=== PATIENT | female | born 1960 | race Caucasian/White ===

== ENCOUNTER 2016-04-23 14:05 | Emergency (ER) | payer OTHER ==
[~2016-04-23] VITALS: Ht 172.7 cm; Wt 71.2 kg
[~2016-04-23 14:05] MED LIST: FAMOTIDINE20 MG PO; IBUPROFEN400 M1 PO; LEVSIN0.125 M1 PO; PERCOCET 5-3251 EACH PO; TYLENOL325 M1 PO; ZOFRAN4 M2 PO
[2016-04-23 14:16] VITALS: BP 111/72
--- NOTE | 2016-04-23 15:36 | ED GI/GU/ABDOMINAL COMPLAINT ---
History of Present Illness General Chief Complaint: Abdominal Pain/Flank Pain Stated Complaint: ABD PAIN X 2 WEEKS Source: patient, old records Exam Limitations: no limitations Vital Signs & Intake/Output Vital Signs & Intake/Output Vital Signs Date Time Temp Pulse Resp B/P Pulse O2 O2 Flow FiO2 Ox Delivery Rate 04/23 1416 97.8 87 20 111/72 97 Room Air ED Intake and Output 04/24 0000 04/23 1200 Intake Total Output Total Balance Patient 157 lb Weight Allergies Coded Allergies: Sulfa (Sulfonamide Antibiotics) (Intermediate, HIVES 04/23/16) codeine (FLIP OUT 07/07/15) fluconazole (HIVES 07/07/15) shellfish derived (HIVES 07/07/15) Reconcile Medications Dicyclomine Hydrochloride (Bentyl) 10 MG CAPSULE 1 CAP PO TID PRN abdominal pain Famotidine 20 MG TABLET 1 TAB PO DAILY GI (Reported) Multivitamin (Multi-Day Vitamins) 1 EACH TABLET 1 TAB PO DAILY SUPPLEMENT ( Reported) Omeprazole 40 MG CAPSULE.DR 1 CAP PO DAILY GERD Ondansetron (Zofran Odt) 4 MG TAB.RAPDIS 1 TAB SL TID PRN nausea Triage Note: TRIAGE: PT TO ER C/C MID ABD PAIN WITH ESOPAGEAL BURNING PAIN, ONSET 2 WEEKS AGO, INTERMITTENT SINCE ONSET BUT NOW CONSTANT SINCE THIS MORNING AFTER EATING BREAKFAST. STATES "I CAN'T STOP BURPING. IT'S HARD TO EXPLAIN. WHEN I GO TO THE BATHROOM ONLY LITTLE TINY PIECES COME OUT. I'M BLOCKED SOMEWHERE AND HE JUST DOESN'T GET IT". SAW DR NAGY SUNDAY AND LAST WEEK FOR SAME. WAS ADVISED TO TAKE MIRALAX AND DULCOLAX SUPPOSITORY FOR CONSTIPATION. STATES "IT OPENED ME UP FOR A WHILE BUT THEN IT STARTED UP ALL OVER AGAIN. BUT IT NEVER REALLY WENT TO NORMAL. I JUST CAN'T TAKE THIS PAIN ANYMORE." +NAUSEA, -VOMITING. -URINARY S/S. Triage Nurses Notes Reviewed? yes ? n Is pt currently ? No HPI: Patient is a 56 year old female presents complaining of mid abdominal pain, constipation, intermittent nausea and burping. Patient reports symptoms have been chronic since she had her cholecystectomy in June 2015. Symptoms worsening over the past 2 weeks and significantly worse today. Pain is currently severe. Patient saw her primary care doctor, Ken Nagy MD, and was placed on MiraLAX and Pepcid. Patient has been taking with no improvement. Patient reports pain is a sharp pain that worsens after eating. Intermittent nausea, none currently. Patient reports increasing burping. Denies fevers, vomiting, urinary symptoms. (MUNIR MARES) Past History Travel History Traveled to [place] past 21 day No Medical History Any Pertinent Medical History? see below for history Neurological: NONE EENT: NONE Cardiovascular: syncope Respiratory: NONE Gastrointestinal: GERD Hepatic: NONE Renal: NONE Musculoskeletal: BILATERAL PLANTAR FASCIA RELEASE Psychiatric: NONE Endocrine: NONE Blood Disorders: NONE Cancer(s): NONE BRANCH MANAGER TRAINEE/Reproductive: NONE Surgical History Surgical History: cholecystectomy Psychosocial History What is your primary language Sinhala Tobacco Use: Never used ETOH Use: occasional use Illicit Drug Use: denies illicit drug use Family History Hx Contributory? No (MUNIR MARES) Review of Systems Review of Systems Constitutional: Denies: chills, fever. EENTM: Reports: no symptoms. Respiratory: Denies: cough, short of breath. Cardiovascular: Denies: chest pain. GI: Reports: see HPI. Genitourinary: Reports: no symptoms. Musculoskeletal: Reports: no symptoms. Skin: Reports: no symptoms. Neurological/Psychological: Reports: no symptoms. Hematologic/Endocrine: Reports: no symptoms. Immunologic/Allergic: Reports: no symptoms. (MUNIR MARES) Physical Exam Physical Exam General Appearance: alert, awake Head: atraumatic, normal appearance Eyes: Bilateral: normal appearance, PERRL, EOMI. Ears, Nose, Throat, Mouth: hearing grossly normal, moist mucous membrane Neck: normal inspection, supple, full range of motion Respiratory: normal breath sounds, chest non-tender, no respiratory distress, lungs clear Cardiovascular: regular rate/rhythm Gastrointestinal: mildly hypoactive bowel sounds. Mild mid supraumbilical tenderness. Negative mcburney's point tenderness Back: normal inspection, normal range of motion Extremities: normal range of motion Neurologic/Psych: no motor/sensory deficits, awake, alert, oriented x 3, normal gait, normal mood/affect Skin: intact, normal color, warm/dry Core Measures ACS in differential dx? Yes Severe Sepsis Present: No Septic Shock Present: No (MUNIR MARES) Progress Differential Diagnosis: AAA, AMI, appendicitis, bowel obstruction, diverticulitis, gastritis, hepatitis, hernia, ischemic bowel, inflamm bowel dis, kidney stone, ovarian cyst, ovarian torsion, pancreatitis, PUD/GERD, perforated viscous, SBO, UTI/pyelo Plan of Care: Orders Procedure Date/time Status LIPASE 04/23 153 Complete COMPREHENSIVE METABOLIC PANEL 04/23 153 Complete CBC WITHOUT DIFFERENTIAL 04/23 153 Complete Laboratory Tests 04/23/16 1620: Anion Gap 11, Estimated GFR > 60, BUN/Creatinine Ratio 31.4 H, Glucose 91, Calcium 9.5, Total Bilirubin 0.5, AST 30, ALT 39, Alkaline Phosphatase 84, Total Protein 7.8, Albumin 4.5, Globulin 3.3, Albumin/Globulin Ratio 1.4, Lipase 104, CBC w Diff MAN DIFF ORDERED, RBC 4.67, MCV 90.6, MCH 30.2, RDW 13.0, MPV 8.5, Gran % 83.4 H, Lymphocytes % 10.9 L, Monocytes % 5.1, Eosinophils % 0.5, Basophils % 0.1, Absolute Granulocytes 8.2 H, Segmented Neutrophils 79 H, Band Neutrophils 6 H, Absolute Lymphocytes 1.1 L, Lymphocytes 9 L, Monocytes 5, Absolute Monocytes 0.5, Eosinophils 1, Absolute Eosinophils 0.1, Absolute Basophils 0, Platelet Estimate ADEQUATE, Anisocytosis 1+, Macrocytic Cells 1+, PUBS MCHC 33.4 Patient declined pain medication, antinausea medicationon initial exam. 1700: Results of labs and x-ray discussed with patient. No RLQ tenderness. Patient afebrile, WBC count normal, no peritoneal signs on exam, no diverticulosis on colonoscopy from 2012. CT scan deferred. Patient complaining of nausea currently. Zofran ordered. Just prior to discharge patient began vomiting. IM reglan ordered. Improvement of nausea. Patient appears stable for discharge. (RUTHY GUAMAN,MUNIR) Diagnostic Imaging: Viewed by Me: Radiology Read. Discussed w/RAD: Radiology Read. Radiology Impression: PATIENT: CHRISTOPH SAUCEDA PRESENT AGE: 56 PATIENT ACCOUNT NO: [id number] : 58 LOCATION: [facility] ORDERING PHYSICIAN: MUNIR GUAMAN SERVICE DATE: 04/23/16-153 EXAM TYPE: RAD - [id number] VIEWS EXAMINATION: XR ABDOMEN MULTIPLE VIEWS CLINICAL INDICATION: Increased burping and nausea. Abdominal pain. Difficulty having bowel movements. COMPARISON: Chest radiography 07/07/2015. TECHNIQUE: 2 views of the abdomen were obtained. FINDINGS: No pneumoperitoneum or portal venous gas. Right upper quadrant surgical clips. No dilated loops of large or small bowel. Small volume of stool in the colon. Multiple pelvic calcifications are most suspicious for phleboliths. Lung bases are clear. No acute osseous abnormalities. IMPRESSION: Nonobstructive bowel gas pattern. DICTATED BY: MARCELO TOUSSAINT MD DATE/TIME DICTATED:04/23/161615 FISH CUTTING MACHINE OPERATOR:PAULINA DATE/ TIME TRANSCRIBED:04/23/161615 CONFIDENTIAL, DO NOT COPY WITHOUT APPROPRIATE AUTHORIZATION. <Electronically signed in Other Vendor System> SIGNED BY: MARCELO TOUSSAINT MD 04/23/161621 Initial ED EKG: none (MUNIR MARES) Departure Departure Disposition: HOME OR SELF CARE Condition: Stable Clinical Impression Primary Impression: GERD (gastroesophageal reflux disease) Qualifiers: Esophagitis presence: esophagitis presence not specified Qualified Code: K21.9 - Gastro-esophageal reflux disease without esophagitis Secondary Impressions: Abdominal pain Qualifiers: Abdominal location: periumbilical Qualified Code: R10.33 - Periumbilical pain Referrals: YAKOV JOHNSTON,KEN Sotelo (PCP/Family) Additional Instructions: Follow up with your primary doctor within 1 week for further evaluation. call in the morning for appointment. You may also follow up with Dr. Walton(GI doctor ) for further evaluation. Return to the ER if fevers or worsening of symptoms. Departure Forms: Customer Survey General Discharge Information Prescriptions: Current Visit Scripts Omeprazole 1 CAP PO DAILY #30 CAP Dicyclomine Hydrochloride (Bentyl) 1 CAP PO TID PRN abdominal pain #12 CAP Ondansetron (Zofran Odt) 1 TAB SL TID PRN nausea #10 TAB (MUNIR MARES) PA/FRICKERTRON CHECKER Co-Sign Statement Statement: ED Attending supervision documentation- [] I saw and evaluated the patient. I have also reviewed all the pertinent lab results and diagnostic results. I agree with the findings and the plan of care as documented in the PA's/FRICKERTRON CHECKER's documentation. [X] I have reviewed the ED Record and agree with the PA's/FRICKERTRON CHECKER's documentation. [] Additions or exceptions (if any) to the PAs/FRICKERTRON CHECKER's note and plan are summarized below: [] (RAUL JOHNSTON,ARACELI)
--- NOTE | 2016-04-23 16:22 | RADIOLOGY REPORT ---
EXAMINATION: XR ABDOMEN MULTIPLE VIEWS CLINICAL INDICATION: Increased burping and nausea. Abdominal pain. Difficulty having bowel movements. COMPARISON: Chest radiography 07/07/2015. TECHNIQUE: 2 views of the abdomen were obtained. FINDINGS: No pneumoperitoneum or portal venous gas. Right upper quadrant surgical clips. No dilated loops of large or small bowel. Small volume of stool in the colon. Multiple pelvic calcifications are most suspicious for phleboliths. Lung bases are clear. No acute osseous abnormalities. IMPRESSION: Nonobstructive bowel gas pattern.
[2016-04-23 16:30] LABS: ABSOLUTE BASOPHIL COUNT 0 /CUMM (0.0-0.2); ABSOLUTE EOSINOPHIL COUNT 0.1 /CUMM (0.0-0.7); ABSOLUTE GRANULOCYTE CT 8.2 /CUMM (1.4-6.5); ABSOLUTE LYMPH COUNT 1.1 /CUMM (1.2-3.4); ABSOLUTE MONOCYTE COUNT 0.5 /CUMM (0.10-0.60); BASOPHIL % 0.1 % (0.0-2.0); EOSINOPHIL % 0.5 % (0-5); HEMATOCRIT 42.3 % (37-47); MEAN CORPUSCULAR HGB 30.2 PG (27.0-31.0); MEAN CORPUSCULAR HGB CONC 33.4 G/DL (33.0-37.0); MEAN CORPUSCULAR VOLUME 90.6 FL (81.0-99.0); MEAN PLATELET VOLUME 8.5 FL (7.4-10.4); PLATELET COUNT 238 /CUMM (130-400); RED BLOOD CELL CT 4.67 /CUMM (4.20-5.40); WHITE BLOOD CELL COUNT 9.8 /CUMM (4.8-10.8)
[2016-04-23 16:37] LABS: GRANULOCYTE % 83.4 % (42.2-75.2)
[2016-04-23] MEDS ORDERED: FAMOTIDINE20 M1 PO (16:39)
[2016-04-23] MEDS ORDERED: MULTI-DAY VITA1 EACH PO (16:40)
[2016-04-23] MEDS ORDERED: OMEPRAZOLE40 M1 PO (16:57)
[2016-04-23] MEDS ORDERED: BENTYL10 M1 PO (16:57)
[2016-04-23] MEDS ORDERED: ZOFRAN ODT4 M1 SL (16:57)
== END 2016-04-23 18:14 ==
LOC: ERH 14:05
PROVIDERS: Physician Assistant
DX: K21.9 Gastro-esophageal reflux disease without esophagitis (principal); R10.33 Periumbilical pain
CPT/HCPCS: 74020; 96372; J2765; J3101